=== PATIENT | male | born 1940 | race Caucasian/White ===

== ENCOUNTER → 2018-09-03 | Outpatient (CLI) | payer MEDICARE ==
[~2018-09-03] VITALS: Ht 180.3 cm; Wt 86.6 kg
[~2018-09-03] MED LIST: GENTAMICIN 80 MG/NS 100 ML PB 100 ML IV SCH; LOSA50TA64 PO; MAGN400T40 PO; METO-408 PO; MULT-1335 PO; NIAC500T22 PO; OMEG-116 PO; SOLI5 PO; TAMS-1 PO; VIT-12 PO; ZINC50TA64 PO; ZOSYN 3.375GM+NS 50ML 50 ML IV SCH
[2018-09-03 16:28] LABS: BASOPHILS % (AUTO) 0.6 % (0.0-5.0); HEMATOCRIT 45.8 % (42-54); LYMPHOCYTES % (AUTO) 32.2 % (21.0-51.0); MEAN CORPUSCULAR HEMOGLOBIN 33.1 pg (27.0-33.0); MEAN CORPUSCULAR HGB CONC 34.4 g/dL (32.0-36.0); MEAN CORPUSCULAR VOLUME 96.3 fL (79-99); MONOCYTES % (AUTO) 9.7 % (3.0-13.0); NEUTROPHILS % (AUTO) 55.5 % (40.0-77.0); NUCLEATED RED BLOOD CELLS 0.1 % (0.0-0.19); PLATELET COUNT (AUTO) 201 K/uL (130-400); RED BLOOD CELL COUNT(AUTO) 4.76 MIL/uL (4.50-6.20); RED CELL DISTRIBUTION WIDTH 13.2 % (11.0-15.5); WHITE BLOOD COUNT (AUTO) 7.6 K/uL (4.8-10.8)
[2018-09-03 16:41] LABS: CREATININE 1.6 mg/dL (0.5-1.5); POTASSIUM 4.3 mmol/L (3.5-5.1)
[2018-09-03 17:01] VITALS: BP 143/89
--- NOTE | 2018-09-04 10:30 | NUR ---
EKG INFORMED DR. BOBBY OF ABNORMAL EKG. NO ORDERS RECEIVED.
--- NOTE | 2018-09-04 13:43 | NUR ---
EKG DR. BOBBY INQUIRING WHO PTS PCP. HOW LONG HAS IT BEEN SINCE PT HAS BEEN SEEN? PT SEES JACKSON SIMMONS ON A NEEDED BASIS AND DOES NOT FOLLOW UP WITH A [facility] [facility]. DR. JOHN REQUESTING CARDIAC CLEARANCE FOR PROCEDURE. CALLED AND SPOKE TO GAYE AT DR. HEARN OFFICE. SHE WILL INFORM DR. HEARN AND SHE WILL SPEAK TO DR. BOBBY IN REGARDS TO PT.
--- NOTE | 2018-09-04 14:04 | NUR ---
EKG YSENIA FROM DR. HEARN'S OFFICE ON PHONE. DR. MCCARTHY AND DR. BOBBY SPOKE ABOUT PROCEDURE SCHEDULED. PT TO GET CARDIAC CLEARANCE PRIOR TO PROCEDURE. DR. HEARN OFFICE WILL CALL PT TO INFORM PROCEDURE CANCELLED DUE TO NEEDING CARDIAC CLEARANCE.
== END ==
LOC: DAH 10:00 → EDSTATUS 15:00
PROVIDERS: ATTEND Urology
DX: Z01.818 Encounter for other preprocedural examination (principal); N40.1 Benign prostatic hyperplasia with lower urinary tract symptoms; N32.0 Bladder-neck obstruction
CPT/HCPCS: 36415; 80048; 85025; 93005

== ENCOUNTER 2018-09-17 06:53 | Day surgery (SDC) | payer MEDICARE ==
[2018-09-17] VITALS (10 sets, daily range): BP systolic 116–140; BP diastolic 52–75
[~2018-09-17] VITALS: Ht 180.3 cm; Wt 86.6 kg
[2018-09-17] MEDS: ZOSYN 3.375GM+NS 50ML 50 ML IV SCH ×2 (06:00→08:45)
[~2018-09-17 06:53] MED LIST changes: -ZOSYN 3.375GM+NS 50ML 50 ML IV SCH
[2018-09-17] MEDS ORDERED: LACTATED RINGERS 1000ML 1,000 ML IV ONE (07:43)
--- NOTE | 2018-09-17 08:00 | NUR ---
HEARING AIDES left at home Addendum: 09/17/18 at 1017 by IFRAH HENDRIX RN RN Amended: Links added.
[2018-09-17] MEDS ORDERED: MIDAZOLAM HCL 1 MG/ML 2ML VIAL ONE (08:22)
[2018-09-17] MEDS ORDERED: ONDANSETRON HCL 4 MG/2 ML VIAL ONE (08:22)
[2018-09-17] MEDS ORDERED: PROPOFOL 10 MG/ML 20ML VIAL IV ONE (08:22)
[2018-09-17] MEDS ORDERED: LIDOCAINE PF 2% 5ML ABBOJECT ONE (08:22)
[2018-09-17] MEDS ORDERED: FENTANYL CITRATE PF 50 MCG/1 ML 2ML VIAL ONE (08:23)
[2018-09-17] MEDS ORDERED: ROCURONIUM 10MG/1ML SYR 10 MG/ML ML ONE (08:23)
[2018-09-17] MEDS ORDERED: NEOSTIGMINE 5MG/5ML SYR IV ONE (09:30)
[2018-09-17] MEDS ORDERED: GLYCOPYRROLATE 1 MG/5 ML SYRINGE ONE (09:30)
[2018-09-17] MEDS ORDERED: OPIUM/BELLADONNA ALKALOIDS 1 EACH SUPP.RECT RC ONE (09:56)
--- NOTE | 2018-09-17 11:25 | NUR ---
D/C PT LEFT BY WHEEL CHAIR WITH VELA LEG BAG, RX GIVEN TO .
== END 2018-09-17 11:10 | disposition home or self-care (01) ==
LOC: DAH 06:53
PROVIDERS: ATTEND Urology
DX: N40.1 Benign prostatic hyperplasia with lower urinary tract symptoms (principal); N32.0 Bladder-neck obstruction; R33.9 Retention of urine, unspecified; R39.14 Feeling of incomplete bladder emptying; Z98.890 Other specified postprocedural states; I10 Essential (primary) hypertension; I25.10 Atherosclerotic heart disease of native coronary artery without angina pectoris; Z79.899 Other long term (current) drug therapy; Z87.891 Personal history of nicotine dependence; Z88.2 Allergy status to sulfonamides
CPT/HCPCS: 52648; A4340; A4354; A4358; A4600; A5113; J1580; J2001; J2250; J2405; J2543; J2704; J2710; J3010; J3490; J7120 ×2

== ENCOUNTER 2018-10-02 13:44 | Inpatient (IN) | payer MEDICARE ==
[2018-10-02] VITALS (17 sets, daily range): BP systolic 82–115; BP diastolic 49–64
[~2018-10-02] VITALS: Ht 180.3 cm; Wt 83.7 kg
[~2018-10-02 13:44] MED LIST changes: -GENTAMICIN 80 MG/NS 100 ML PB 100 ML IV SCH
[2018-10-02 14:08] LABS: BASOPHILS % (AUTO) 1.4 % (0.0-5.0); EOSINOPHILS % (AUTO) 0.2 % (0.0-8.0); HEMATOCRIT 44.4 % (42-54); LYMPHOCYTES % (AUTO) 9.7 % (21.0-51.0); MEAN CORPUSCULAR HEMOGLOBIN 31.5 pg (27.0-33.0); MEAN CORPUSCULAR HGB CONC 33.5 g/dL (32.0-36.0); MONOCYTES % (AUTO) 5.3 % (3.0-13.0); NEUTROPHILS % (AUTO) 83.4 % (40.0-77.0); NUCLEATED RED BLOOD CELLS 0.2 % (0.0-0.19); PLATELET COUNT (AUTO) 277 K/uL (130-400); RED BLOOD CELL COUNT(AUTO) 4.73 MIL/uL (4.50-6.20); RED CELL DISTRIBUTION WIDTH 12.8 % (11.0-15.5); WHITE BLOOD COUNT (AUTO) 11.3 K/uL (4.8-10.8)
[2018-10-02] MEDS ORDERED: ASPIRIN 325 MG TABLET ONE (14:13)
[2018-10-02] MEDS ORDERED: NITROGLYCERIN 1GM/1 INCH PACKET TD ONE (14:14)
[2018-10-02 14:15] LABS: CREATININE 1.4 mg/dL (0.5-1.5); PARTIAL THROMBOPLASTIN TIME 26.8 SEC (26.3-35.5); POTASSIUM 4.1 mmol/L (3.5-5.1); PROTHROMBIN TIME 10.5 SEC (9.6-11.6)
[2018-10-02] MEDS ORDERED: FENTANYL CITRATE PF 50 MCG/1 ML 2ML VIAL ONE (14:15)
[2018-10-02 14:24] LABS: ALBUMIN 3.9 g/dL (3.5-5.0); BILIRUBIN,TOTAL 0.6 mg/dL (0.2-1.0); TOTAL PROTEIN, SERUM 7.2 g/dL (6.0-8.3)
[2018-10-02] MEDS ORDERED: CLOPIDOGREL BISULFATE 300 MG TAB ONE (16:03)
[2018-10-02] MEDS ORDERED: IOHEXOL 350 MG/ML 100ML INFUS..BTL IV ONE ×2 (16:33→17:35)
[2018-10-02] MEDS ORDERED: IOHEXOL-350 50ML VIAL IV ONE (16:33)
[2018-10-02] MEDS ORDERED: LIDOCAINE HCL 1% 20 ML VIAL ONE (16:33)
[2018-10-02] MEDS ORDERED: HEPARIN SODIUM 1000UNIT/ML 10ML VIAL ONE (16:33)
[2018-10-02] MEDS ORDERED: BIVALIRUDIN 250 MG/VIAL IV ONE (16:33)
[2018-10-02] MEDS ORDERED: NITROGLYCERIN 5 MG/ML 10 ML VIAL IV ONE (16:33)
[2018-10-02] MEDS ORDERED: MIDAZOLAM HCL 1 MG/ML 2ML VIAL ONE (16:33)
[2018-10-02] MEDS ORDERED: IOHEXOL-350 75 ML VIAL IV ONE (17:35)
[2018-10-02] MEDS ORDERED: EPTIFIBATIDE 2 MG/ML 10 ML VIAL IVP ONE (17:38)
[2018-10-02] MEDS ORDERED: EPTIFIBATIDE 75MG/100ML BOTTLE 100 ML IV ONE (17:40)
[2018-10-02] MEDS ORDERED: ATROPINE SULFATE 0.1 MG/ML 10 ML SYG IVP ONE (17:56)
[2018-10-02] MEDS ORDERED: NITROGLYCERIN 0.4 MG SL TAB SL PRN ×2 (18:45→19:00)
[2018-10-02] MEDS ORDERED: ACETAMINOPHEN 325 MG TAB PO PRN ×2 (18:45→19:00)
[2018-10-02] MEDS ORDERED: ONDANSETRON HCL 4 MG/2 ML VIAL IV PRN (19:00)
[2018-10-02] MEDS ORDERED: SODIUM CHLORIDE 0.9% 1000ML 1,000 ML IV SCH (19:30)
--- NOTE | 2018-10-02 19:30 | NUR ---
NEW ADMIT 78 YEAR OLD MALE PT ADMITTED INTO ROOM 206 S/P [facility]. RIGHT GROIN SOFT, NO HEMATOMA NO BRUISING, DRSG C/D/I. PT ORIENTED TO ROOM AND CALLBELL. DENIES ANY CHEST PAIN. FOR MORE INFORMATION SEE NURSING ASSESSMENT, NURSING DATA BASE.
[2018-10-02] MEDS: SODIUM CHLORIDE 0.9% 1000ML 1,000 ML IV SCH (19:56)
[2018-10-02 20:06] LABS: HEMOGLOBIN A1C 5.6 % (4.0-6.0)
[2018-10-02] MEDS ORDERED: ATORVASTATIN CALCIUM 40 MG TABLET PO SCH (21:00)
[2018-10-02] MEDS: FAMOTIDINE 20MG TAB 20 MG TAB PO SCH (21:38)
[2018-10-02] MEDS: METOPROLOL TARTRATE 25 MG TAB PO SCH (21:39)
--- NOTE | 2018-10-02 21:45 | NUR ---
WIDE QRS COMPLEX [facility] PLATE PRINTER MADE AWARE OF 15 BEATS OF WIDE QRS COMPLEX. SEE ORDERS
[2018-10-02 22:36] LABS: CREATININE 1.1 mg/dL (0.5-1.5); MAGNESIUM 1.7 mg/dL (1.80-2.40); POTASSIUM 3.7 mmol/L (3.5-5.1)
[2018-10-02] MEDS ORDERED: MAGNESIUM 2GM PREMIX 50ML 50 ML IV PRN (23:00)
[2018-10-02] MEDS ORDERED: POTASSIUM CHLORIDE 20 MEQ ERTAB PO ONE (23:00)
[2018-10-03] VITALS (20 sets, daily range): BP systolic 96–142; BP diastolic 39–86
[2018-10-03] MEDS ORDERED: HYDROCODONE/ACETAMINOPHEN 5/325 MG TAB PO PRN ×2
[2018-10-03] MEDS: ACETAMINOPHEN 325 MG TAB PO PRN (00:18)
[2018-10-03 03:31] LABS: HEMATOCRIT 37.5 % (42-54); MEAN CORPUSCULAR HEMOGLOBIN 32.9 pg (27.0-33.0); MEAN CORPUSCULAR HGB CONC 34.9 g/dL (32.0-36.0); MEAN CORPUSCULAR VOLUME 94.1 fL (79-99); PLATELET COUNT (AUTO) 246 K/uL (130-400); RED BLOOD CELL COUNT(AUTO) 3.99 MIL/uL (4.50-6.20); RED CELL DISTRIBUTION WIDTH 12.6 % (11.0-15.5); WHITE BLOOD COUNT (AUTO) 10.1 K/uL (4.8-10.8)
[2018-10-03] MEDS: SODIUM CHLORIDE 0.9% 1000ML 1,000 ML IV SCH ×3 (03:42→20:56)
[2018-10-03 04:09] LABS: CREATININE 1.2 mg/dL (0.5-1.5); POTASSIUM 4.2 mmol/L (3.5-5.1)
[2018-10-03 04:11] LABS: TROPONIN I 44.39 ng/mL (0.00-0.06)
--- NOTE | 2018-10-03 07:26 | NUR ---
REPORT REPORT GIVEN TO TORI HILL. ENDORSED MED RECONCILIATION, SIGNING OF CONSENTS/PAPERWORK
[2018-10-03] MEDS: LOSARTAN 50 MG TABLET PO SCH (08:23)
[2018-10-03] MEDS: FAMOTIDINE 20MG TAB 20 MG TAB PO SCH ×2 (08:24→20:11)
[2018-10-03] MEDS: TAMSULOSIN HCL 0.4 MG CAP.ER.24H PO SCH (08:24)
[2018-10-03] MEDS: ENOXAPARIN SODIUM 30 MG/0.3 ML SQ SCH (08:24)
[2018-10-03] MEDS: MAGNESIUM OXIDE 400 MG TABLET PO SCH (08:24)
[2018-10-03] MEDS: METOPROLOL TARTRATE 25 MG TAB PO SCH ×2 (08:24→20:11)
[2018-10-03] MEDS: ASPIRIN 81MG TAB.CHEW PO SCH (08:24)
[2018-10-03] MEDS: CLOPIDOGREL BISULFATE 75 MG TAB PO SCH (08:24)
[2018-10-03] MEDS ORDERED: CLOP75TA14 PO (09:51)
[2018-10-03] MEDS ORDERED: ASPI-555 PO (09:51)
[2018-10-03] MEDS ORDERED: PRAV20TA4 PO (09:51)
--- NOTE | 2018-10-03 10:04 | NUR ---
AQUILINO Arora met with pt who lives with his [phone]. pt reports he is very independent, uses no dme or hh services. Denies dc needs and plan is home at ri Addendum: 10/03/18 at 1005 by GISSELLE MÁRQUEZ Amended: Links added.
[2018-10-03 13:07] LABS: TROPONIN I 32.16 ng/mL (0.00-0.06)
--- NOTE | 2018-10-03 16:40 | NUR ---
TRANSFER PT RECEIVED FROM 206. TOLERATED TRANSFER WELL. FAMILY @ BEDSIDE. PT ORIENTED TO . A/O X 4. NO SOB. NO DISTRESS NOTED. DENIES CHEST PAIN OR DISCOMFORT. DENIES PALPITATIONS. TELE: SR 60s. DENIES N/V AND/OR DIARRHEA. RT GROIN SOFT, NON-TENDER. NO BLEEDING, NO HEMATOMA NOTED. (+) PEDAL PULSES. BLE PINK & WARM TO TOUCH. INSTRUCTED TO CALL FOR ASSISTANCE. CALL CISNEROS W/IN REACH. REPORT RECEIVED FROM Ewa JAVIER RN.
[2018-10-03] MEDS ORDERED: SIMVASTATIN 20 MG TABLET PO SCH (21:00)
[2018-10-04] MEDS: ACETAMINOPHEN 325 MG TAB PO PRN ×2 (03:22→12:45)
[2018-10-04 03:32] VITALS: BP 127/74
[2018-10-04 07:35] VITALS: BP 111/63
--- NOTE | 2018-10-04 07:45 | NUR ---
AM ASSESSMENT PT LAYING IN BED, HOB ELEVATED 30 DEGREES, RESTING. FAMILY @ BEDSIDE. A/O X 3. NO SOB. NO DISTRESS NOTED. DENIES CHEST PAIN OR DISCOMFORT. DENIES PALPITATIONS. TELE: SR 70s. DENIES N/V AND/OR DIARRHEA. RT GROIN SOFT, NON-TENDER. NO BLEEDING, NO HEMATOMA NOTED. (+) BILATERAL PEDAL PULSES. BLE PINK & WARM TO TOUCH. UP AD LISSETTE. INSTRUCTED TO CALL FOR ASSISTANCE. CALL BLAYNE W/IN REACH.
[2018-10-04] MEDS: FAMOTIDINE 20MG TAB 20 MG TAB PO SCH (08:16)
[2018-10-04] MEDS: ASPIRIN 81MG TAB.CHEW PO SCH (08:16)
[2018-10-04] MEDS: LOSARTAN 50 MG TABLET PO SCH (08:16)
[2018-10-04] MEDS: MAGNESIUM OXIDE 400 MG TABLET PO SCH (08:16)
[2018-10-04] MEDS: TAMSULOSIN HCL 0.4 MG CAP.ER.24H PO SCH (08:16)
[2018-10-04] MEDS: CLOPIDOGREL BISULFATE 75 MG TAB PO SCH (08:17)
[2018-10-04] MEDS: ENOXAPARIN SODIUM 30 MG/0.3 ML SQ SCH (08:21)
[2018-10-04] MEDS: METOPROLOL TARTRATE 25 MG TAB PO SCH (08:22)
[2018-10-04] MEDS: SODIUM CHLORIDE 0.9% 1000ML 1,000 ML IV SCH (08:22)
[2018-10-04 11:19] VITALS: BP 120/66
--- NOTE | 2018-10-04 13:55 | NUR ---
MD NOTIFICATION Ewa HAWTHORNE NP NOTIFIED CT SCAN RESULT OF HEAD NEGATIVE. EUNICE PROCEED W/DC HOME TODAY
--- NOTE | 2018-10-04 14:05 | NUR ---
DISCHARGE VERBAL & WRITTEN DISCHARGE INSTRUCTIONS REVIEWED & GIVEN TO PT & SPOUSE. QUESTIONS ENCOURAGED & CLARIFIED. PROPER CARE & ACTIVITY AFTER LHC W/STENT REVIEWED. NEW PRESCRIBED MEDICATIONS REVIEWED. PRESCRIPTION GIVEN TO PT; SIGNED COPY PLACED IN CHART. REINFORCED IMPORTANCE OF TAKING PLAVIX & ASA INDICATED & NOT MISSING A DOSE. STATES UNDERSTANDING. TELE HUSSEIN REMOVED EARLIER. IV X 2 DISCONTINUED. PT & FAMILY TO GATHER PERSONAL BELONGINGS. WILL NOTIFY STAFF WHEN READY TO BE TAKEN TO PRIVATE VEHICLE.
--- NOTE | 2018-10-04 14:30 | NUR ---
DISCHARGE PT TAKEN TO PRIVATE VEHICLE VIA WC BY Paty VILLA PCP, ACCOMPANIED BY FAMILY. NO DISTRESS NOTED.
== END 2018-10-04 14:30 | disposition home or self-care (01) | DRG 246 ==
LOC: EDH 13:44 → 2BH 18:33 → 2DH 10-03 16:37
PROVIDERS: ADMIT Internal Medicine; ATTEND Internal Medicine
PROC: 4A023N7 Measurement of Cardiac Sampling and Pressure, Left Heart, Percutaneous Approach (ICD-10-PCS; principal; 2018-10-02)
PROC: 027034Z Dilation of Coronary Artery, One Artery with Drug-eluting Intraluminal Device, Percutaneous Approach (ICD-10-PCS; 2018-10-02)
PROC: 02C03ZZ Extirpation of Matter from Coronary Artery, One Artery, Percutaneous Approach (ICD-10-PCS; 2018-10-02)
PROC: B2111ZZ Fluoroscopy of Multiple Coronary Arteries using Low Osmolar Contrast (ICD-10-PCS; 2018-10-02)
PROC: B2181ZZ Fluoroscopy of Left Internal Mammary Bypass Graft using Low Osmolar Contrast (ICD-10-PCS; 2018-10-02)
PROC: B2131ZZ Fluoroscopy of Multiple Coronary Artery Bypass Grafts using Low Osmolar Contrast (ICD-10-PCS; 2018-10-02)
PROC: 3E033PZ Introduction of Platelet Inhibitor into Peripheral Vein, Percutaneous Approach (ICD-10-PCS; 2018-10-02)
DX: T82.868A Thrombosis due to vascular prosthetic devices, implants and grafts, initial encounter (principal); I21.19 ST elevation (STEMI) myocardial infarction involving other coronary artery of inferior wall; N18.3 Chronic kidney disease, stage 3 (moderate); I12.9 Hypertensive chronic kidney disease with stage 1 through stage 4 chronic kidney disease, or unspecified chronic kidney disease; E78.5 Hyperlipidemia, unspecified; I25.10 Atherosclerotic heart disease of native coronary artery without angina pectoris; N40.0 Benign prostatic hyperplasia without lower urinary tract symptoms; Y83.2 Surgical operation with anastomosis, bypass or graft as the cause of abnormal reaction of the patient, or of later complication, without mention of misadventure at the time of the procedure; Z79.02 Long term (current) use of antithrombotics/antiplatelets; Z79.82 Long term (current) use of aspirin; Z79.899 Other long term (current) drug therapy; Z87.442 Personal history of urinary calculi; Z87.891 Personal history of nicotine dependence; Z95.1 Presence of aortocoronary bypass graft; Z95.5 Presence of coronary angioplasty implant and graft; Z88.2 Allergy status to sulfonamides; Y92.89 Other specified places as the place of occurrence of the external cause
CPT/HCPCS: 36415; 70450; 71045; 80048; 80053; 80061; 82550; 83036; 83735; 83874; 83880; 84484; 85025; 85027; 85610; 85730; 93005; 93306; 93455; 99291; C1725; C1760; C1769; C1887; C1894; C9606; G0378; J0461; J0583; J1327; J1644; J1650; J2250; J3010; J3475; J3490; J7030; Q9967